=== PATIENT | male | born 1965 | race Caucasian/White ===

== ENCOUNTER 2025-01-04 14:09 | Outpatient (CLI) | payer OTHER ==
[~2025-01-04 14:09] MED LIST: iohexol 300mg/ml 100ml inj. ONE
--- NOTE | 2025-01-04 15:13 | RADIOLOGY REPORT ---
Procedure: CT CT CHEST W/ IV CONTRAST Reason for study/Clinical History: LUNG MASS,BRONCHITIS Comparison Study: None available at time of dictation. Exam Date: 01/04/2025 02:35 PM Radiation Dose Information: CT Dose: CTDI volume is 15.01 mGy. Dose-length product is 592.69 mGy*cm Contrast: Type of contrast: Omni 300 Contrast inject: 100 mL Contrast wasted:0 TECHNIQUE: After the uneventful administration of intravenous contrast intravenously, CT imaging was performed through the chest. Coronal and sagittal reformations were performed by the technologist. FINDINGS: Lower Neck: Visualized portions of the thyroid gland are unremarkable. Aorta and Vasculature: Normal caliber of thoracic aorta. Lymph Nodes: No enlarged intrathoracic lymph nodes. Mediastinum: Heart size is normal. There is no pericardial effusion. The esophagus is unremarkable. Lungs: In the right upper lobe is a pleural-based triangular pulmonary consolidation with a central 2 .9 x 2.2 cm air-fluid level. Findings may represent abscess or infected cyst. There is airspace dise ase noted in the right middle lobe There are no prior studies for comparison. There is no hilar or m ediastinal adenopathy. There are no pulmonary nodules or masses. Musculoskeletal: No acute osseous abnormality. Upper abdomen: Limited portions of the upper abdomen are unremarkable. IMPRESSION: 1. Pleural-based triangular consolidation right upper lung field measuring 5.7 x 4.9 cm. 2. Centrally there is a air-fluid level measuring 2.9 x 2.2 cm. Findings may represent a pulmonary a bscess or infected bulla. 3. Airspace disease is noted medially in the right middle lobe. 4. There are no additional pulmonary nodules or masses in the remainder of the lung soriano bilaterall y. All CT scans at this medical facility are performed using dose modulation techniques as appropriate t o a performed exam including the following: Automated exposure control was utilized; adjustment of th e MA and/or KV according to patient size; and use of iterative reconstruction technique.
== END 2025-01-04 23:59 | disposition home or self-care (01) ==
LOC: RAD 14:09
PROVIDERS: ATTEND Physician Assistant Surgical
DX: J18.1 Lobar pneumonia, unspecified organism (principal); R91.8 Other nonspecific abnormal finding of lung field; J40 Bronchitis, not specified as acute or chronic
CPT/HCPCS: 71260; Q9967